=== PATIENT | female | born 1930 | race Caucasian/White ===

== ENCOUNTER 2019-04-14 18:36 | Emergency (ER) | payer MEDICARE, OTHER ==
--- NOTE | 2019-04-14 19:40 | ED ---
Altered Mental Status HPI - General Chief Complaint: Altered Mental Status Stated Complaint: altered mental Time Seen by Provider: 04/14/19 19:05 Source: patient Mode of arrival: EMS Limitations: no limitations - History of Present Illness Initial Comments: This patient is an 88-year-old woman who was sent from [facility] with concern about possibly of stroke. History is from the patient as well as family members who are at bedside. Family members received a call that the patient was seeming confused and leaning to her right, just before 5 PM. The [facility] arranged to transfer her here. When I interview the patient, she states that she is not aware why she is here. She states that she is feeling well. She is not having any pain. She denies dyspnea. She denies vomiting or diarrhea. She states that she feels well. The patient's family members state that she appears to be at her baseline now. MD Complaint: altered mental status, confusion Onset/Timin -: hour(s) Severity: mild Consistency of Symptoms: unknown Associated Symptoms: denies other symptoms - Related Data Home Medications Medication Instructions Recorded Confirmed Furosemide [Lasix] 40 mg PO BID 06/10/15 04/14/19 Acetaminophen Tab [Tylenol Tab] 650 mg PO Q4H PRN 04/14/19 04/14/19 Artificial Tears-Hypromellose 1 drops BOTH EYES Q5H PRN 04/14/19 04/14/19 [Artificial Tear Drops] Aspirin 81 mg PO DAILY 04/14/19 04/14/19 Bisacodyl [Dulcolax] 10 mg RECTAL DAILY PRN 04/14/19 04/14/19 Cholecalciferol [Vitamin D3 (25 1,000 unit PO DAILY 04/14/19 04/14/19 Mcg = 1000 Iu)] Citalopram Hydrobromide [CeleXA] 20 mg PO DAILY 04/14/19 04/14/19 Famotidine [Pepcid] 20 mg PO BID 04/14/19 04/14/19 Lactulose [Cephulac] 20 mg PO Q12H PRN 04/14/19 04/14/19 Linaclotide [Linzess] 290 mcg PO DAILY 04/14/19 04/14/19 Magnesium Hydroxide [Milk of 1,200 mg PO DAILY PRN 06/28/19 06/28/19 Magnesia] Metoprolol Tartrate [Lopressor] 25 mg PO BID 04/14/19 04/14/19 Potassium Chloride ER [K-Dur 10] 10 meq PO DAILY 04/14/19 04/14/19 Allergies Allergy/AdvReac Type Severity Reaction Status Date / Time No Known Allergies Allergy Verified 04/14/19 19:32 Review of Systems ROS Statement: Those systems with pertinent positive or pertinent negative responses have been documented in the HPI. ROS Other: All systems not noted in ROS Statement are negative. Constitutional: Denies: fever Respiratory: Denies: cough, dyspnea Cardiovascular: Denies: chest pain, syncope Gastrointestinal: Denies: abdominal pain, vomiting, diarrhea Musculoskeletal: Denies: back pain Neurological: Reports: as per HPI, confusion. Denies: headache Past Medical History Past Medical History: Coronary Artery Disease (CAD), Chest Pain / Angina, GERD/Reflux, Hyperlipidemia, Hypertension, Pneumonia Additional Past Medical History / Comment(s): uses cane, SOB(previously on O2- not currently), constipation History of Any Multi-Drug Resistant Organisms: None Reported Past Surgical History: Appendectomy, Breast Surgery, Cholecystectomy, Heart Catheterization, Hysterectomy Additional Past Surgical History / Comment(s): cataracts Past Anesthesia/Blood Transfusion Reactions: No Reported Reaction Past Psychological History: Anxiety Smoking Status: Former smoker - Past Family History Sister(s) Family Medical History: Cancer General Exam Limitations: no limitations General appearance: alert, in no apparent distress Head exam: Present: atraumatic, normocephalic Eye exam: Present: normal appearance, PERRL, EOMI. Absent: scleral icterus, conjunctival injection, nystagmus ENT exam: Present: mucous membranes dry Neck exam: Present: normal inspection, full ROM Respiratory exam: Present: normal lung sounds bilaterally. Absent: respiratory distress, wheezes, rales, rhonchi, stridor Cardiovascular Exam: Present: regular rate, normal rhythm, normal heart sounds. Absent: systolic murmur, diastolic murmur, rubs, gallop GI/Abdominal exam: Present: soft. Absent: distended, tenderness, guarding, rebound Back exam: Present: normal inspection. Absent: CVA tenderness (R), CVA tenderness (L) Neurological exam: Present: alert, CN II-XII intact. Absent: oriented X3 (Oriented to person and recognizes she is in the healthcare facility, could not state the date), motor sensory deficit Skin exam: Present: warm, dry, intact, normal color. Absent: rash Course Vital Signs 04/14/19 18:49 Temperature 98.1 F Pulse Rate 57 L Respiratory 20 Rate Blood Pressure 142/72 O2 Sat by Pulse 97 Oximetry Medical Decision Making - Medical Decision Making Patient is an 88-year-old woman presenting with concerns of stroke, the workup is negative and she is at her baseline according to both patient and her family. Discussed results of the studies, and the patient would like to be discharged home. The patient's family supports her decision. I did advise close follow-up with neurology. Discussed return parameters. - Lab Data Result diagrams: 04/14/19 19:35 04/14/19 19:35 Lab Results 04/14/19 04/14/19 04/14/19 Range/Units 19:35 19:35 19:35 WBC 8.7 (3.8-10.6) k/uL RBC 4.24 (3.80-5.40) m/uL Hgb 12.6 (11.4-16.0) gm/dL Hct 38.5 (34.0-46.0) % MCV 90.7 (80.0-100.0) fL MCH 29.8 (25.0-35.0) pg MCHC 32.8 (31.0-37.0) g/dL RDW 14.3 (11.5-15.5) % Plt Count 196 (150-450) k/uL Neutrophils % 78 % Lymphocytes % 13 % Monocytes % 6 % Eosinophils % 1 % Basophils % 0 % Neutrophils # 6.8 (1.3-7.7) k/uL Lymphocytes # 1.1 (1.0-4.8) k/uL Monocytes # 0.5 (0-1.0) k/uL Eosinophils # 0.1 (0-0.7) k/uL Basophils # 0.0 (0-0.2) k/uL PT (9.0-12.0) sec INR (<1.2) APTT (22.0-30.0) sec Sodium 138 (137-145) mmol/L Potassium 4.8 (3.5-5.1) mmol/L Chloride 100 (98-107) mmol/L Carbon Dioxide 28 (22-30) mmol/L Anion Gap 10 mmol/L BUN 41 H (7-17) mg/dL Creatinine 1.22 H (0.52-1.04) mg/dL Est GFR (CKD-EPI)AfAm 46 (>60 ml/min/1.73 sqM) Est GFR (CKD-EPI)NonAf 40 (>60 ml/min/1.73 sqM) Glucose 105 H (74-99) mg/dL Plasma Lactic Acid Amanuel 1.5 (0.7-2.0) mmol/L Calcium 9.3 (8.4-10.2) mg/dL Total Bilirubin 0.5 (0.2-1.3) mg/dL AST 27 (14-36) U/L ALT 16 (9-52) U/L Alkaline Phosphatase 82 (38-126) U/L Troponin I (0.000-0.034) ng/mL NT-Pro-B Natriuret Pep pg/mL Total Protein 7.0 (6.3-8.2) g/dL Albumin 4.0 (3.5-5.0) g/dL Urine Color Urine Appearance (Clear) Urine pH (5.0-8.0) Ur Specific [place] (1.001-1.035) Urine Protein (Negative) Urine Glucose (UA) (Negative) Urine Ketones (Negative) Urine Blood (Negative) Urine Nitrite (Negative) Urine Bilirubin (Negative) Urine Urobilinogen (<2.0) mg/dL Ur Leukocyte Esterase (Negative) Urine Opiates Screen (NotDetected) Ur Oxycodone Screen (NotDetected) Urine Methadone Screen (NotDetected) Ur Propoxyphene Screen (NotDetected) Ur Barbiturates Screen (NotDetected) U Tricyclic Antidepress (NotDetected) Ur Phencyclidine Scrn (NotDetected) Ur Amphetamines Screen (NotDetected) U Methamphetamines Scrn (NotDetected) U Benzodiazepines Scrn (NotDetected) Urine Cocaine Screen (NotDetected) U Marijuana (THC) Screen (NotDetected) 04/14/19 04/14/19 04/14/19 Range/Units 19:35 19:35 19:35 WBC (3.8-10.6) k/uL RBC (3.80-5.40) m/uL Hgb (11.4-16.0) gm/dL Hct (34.0-46.0) % MCV (80.0-100.0) fL MCH (25.0-35.0) pg MCHC (31.0-37.0) g/dL RDW (11.5-15.5) % Plt Count (150-450) k/uL Neutrophils % % Lymphocytes % % Monocytes % % Eosinophils % % Basophils % % Neutrophils # (1.3-7.7) k/uL Lymphocytes # (1.0-4.8) k/uL Monocytes # (0-1.0) k/uL Eosinophils # (0-0.7) k/uL Basophils # (0-0.2) k/uL PT 9.6 (9.0-12.0) sec INR 0.9 (<1.2) APTT 23.9 (22.0-30.0) sec Sodium (137-145) mmol/L Potassium (3.5-5.1) mmol/L Chloride (98-107) mmol/L Carbon Dioxide (22-30) mmol/L Anion Gap mmol/L BUN (7-17) mg/dL Creatinine (0.52-1.04) mg/dL Est GFR (CKD-EPI)AfAm (>60 ml/min/1.73 sqM) Est GFR (CKD-EPI)NonAf (>60 ml/min/1.73 sqM) Glucose (74-99) mg/dL Plasma Lactic Acid Amanuel (0.7-2.0) mmol/L Calcium (8.4-10.2) mg/dL Total Bilirubin (0.2-1.3) mg/dL AST (14-36) U/L ALT (9-52) U/L Alkaline Phosphatase (38-126) U/L Troponin I <0.012 (0.000-0.034) ng/mL NT-Pro-B Natriuret Pep 361 pg/mL Total Protein (6.3-8.2) g/dL Albumin (3.5-5.0) g/dL Urine Color Urine Appearance (Clear) Urine pH (5.0-8.0) Ur Specific [place] (1.001-1.035) Urine Protein (Negative) Urine Glucose (UA) (Negative) Urine Ketones (Negative) Urine Blood (Negative) Urine Nitrite (Negative) Urine Bilirubin (Negative) Urine Urobilinogen (<2.0) mg/dL Ur Leukocyte Esterase (Negative) Urine Opiates Screen (NotDetected) Ur Oxycodone Screen (NotDetected) Urine Methadone Screen (NotDetected) Ur Propoxyphene Screen (NotDetected) Ur Barbiturates Screen (NotDetected) U Tricyclic Antidepress (NotDetected) Ur Phencyclidine Scrn (NotDetected) Ur Amphetamines Screen (NotDetected) U Methamphetamines Scrn (NotDetected) U Benzodiazepines Scrn (NotDetected) Urine Cocaine Screen (NotDetected) U Marijuana (THC) Screen (NotDetected) 04/14/19 Range/Units 21:14 WBC (3.8-10.6) k/uL RBC (3.80-5.40) m/uL Hgb (11.4-16.0) gm/dL Hct (34.0-46.0) % MCV (80.0-100.0) fL MCH (25.0-35.0) pg MCHC (31.0-37.0) g/dL RDW (11.5-15.5) % Plt Count (150-450) k/uL Neutrophils % % Lymphocytes % % Monocytes % % Eosinophils % % Basophils % % Neutrophils # (1.3-7.7) k/uL Lymphocytes # (1.0-4.8) k/uL Monocytes # (0-1.0) k/uL Eosinophils # (0-0.7) k/uL Basophils # (0-0.2) k/uL PT (9.0-12.0) sec INR (<1.2) APTT (22.0-30.0) sec Sodium (137-145) mmol/L Potassium (3.5-5.1) mmol/L Chloride (98-107) mmol/L Carbon Dioxide (22-30) mmol/L Anion Gap mmol/L BUN (7-17) mg/dL Creatinine (0.52-1.04) mg/dL Est GFR (CKD-EPI)AfAm (>60 ml/min/1.73 sqM) Est GFR (CKD-EPI)NonAf (>60 ml/min/1.73 sqM) Glucose (74-99) mg/dL Plasma Lactic Acid Amanuel (0.7-2.0) mmol/L Calcium (8.4-10.2) mg/dL Total Bilirubin (0.2-1.3) mg/dL AST (14-36) U/L ALT (9-52) U/L Alkaline Phosphatase (38-126) U/L Troponin I (0.000-0.034) ng/mL NT-Pro-B Natriuret Pep pg/mL Total Protein (6.3-8.2) g/dL Albumin (3.5-5.0) g/dL Urine Color Yellow Urine Appearance Clear (Clear) Urine pH 6.0 (5.0-8.0) Ur Specific [place] 1.010 (1.001-1.035) Urine Protein Negative (Negative) Urine Glucose (UA) Negative (Negative) Urine Ketones Negative (Negative) Urine Blood Negative (Negative) Urine Nitrite Negative (Negative) Urine Bilirubin Negative (Negative) Urine Urobilinogen <2.0 (<2.0) mg/dL Ur Leukocyte Esterase Negative (Negative) Urine Opiates Screen Not Detected (NotDetected) Ur Oxycodone Screen Not Detected (NotDetected) Urine Methadone Screen Not Detected (NotDetected) Ur Propoxyphene Screen Not Detected (NotDetected) Ur Barbiturates Screen Not Detected (NotDetected) U Tricyclic Antidepress Not Detected (NotDetected) Ur Phencyclidine Scrn Not Detected (NotDetected) Ur Amphetamines Screen Not Detected (NotDetected) U Methamphetamines Scrn Not Detected (NotDetected) U Benzodiazepines Scrn Not Detected (NotDetected) Urine Cocaine Screen Not Detected (NotDetected) U Marijuana (THC) Screen Not Detected (NotDetected) - EKG Data EKG shows normal: sinus rhythm, axis (Normal), intervals (QRS duration 150 ms, prolonged, consistent with the left bundle-branch block. UT interval 146 ms, QTC 504 ms, both normal), QRS complexes (Left bundle branch block) Rate: bradycardia (Rate is approximately 58 bpm) Interpretation: other (There does appear to be previous left bundle-branch block from previous monitor tracings.) Disposition Clinical Impression: TIA (transient ischemic attack) Disposition: HOME SELF-CARE Condition: Fair Instructions (If sedation given, give patient instructions): Transient Ischemic Attack (ED) Is patient prescribed a controlled substance at d/c from ED?: No Referrals: Elza Meadows MD [Primary Care Provider] - 1-2 days Jasvir Santos MD [REFERRING] - 1-2 days
[2019-04-14 20:16] LABS: Basophils % (A) 0 %; Eosinophils # (A) 0.1 k/uL (0-0.7); Eosinophils % (A) 1 %; HCT 38.5 % (34.0-46.0); HGB 12.6 gm/dL (11.4-16.0); Lymphocytes # (A) 1.1 k/uL (1.0-4.8); Lymphocytes % (A) 13 %; MCH 29.8 pg (25.0-35.0); MCHC 32.8 g/dL (31.0-37.0); MCV 90.7 fL (80.0-100.0); Mean Platelet Volume 6.8; Monocytes # (A) 0.5 k/uL (0-1.0); Monocytes % (A) 6 %; Neutrophils # (A) 6.8 k/uL (1.3-7.7); Neutrophils % (A) 78 %; Platelet Count 196 k/uL (150-450); RBC 4.24 m/uL (3.80-5.40); RDW 14.3 % (11.5-15.5); WBC 8.7 k/uL (3.8-10.6)
--- NOTE | 2019-04-14 20:20 | XR ---
EXAMINATION: XR chest 2V DATE AND TIME: 04/14/2019 8:14 PM CLINICAL INDICATION: PHH; altered mental status TECHNIQUE: Departmental protocol COMPARISON: 04/30/2016 FINDINGS: The lungs are clear. The pleural spaces are negative. The cardiac silhouette is mildly enlarged. The skeletal structures and soft tissues are negative for acute findings. Intrathoracic stomach redemonstrated. IMPRESSION: NO ACUTE PROCESS.
[2019-04-14 20:25] LABS: Calcium 9.3 mg/dL (8.4-10.2); Potassium 4.8 mmol/L (3.5-5.1); Total Bilirubin 0.5 mg/dL (0.2-1.3)
[2019-04-14 20:30] LABS: INR 0.9 (<1.2); Partial Thromboplastin Time 23.9 sec (22.0-30.0); Prothrombin Time 9.6 sec (9.0-12.0)
--- NOTE | 2019-04-14 20:44 | CT ---
EXAMINATION: CT brain wo con DATE AND TIME: 04/14/2019 8:12 PM CLINICAL INDICATION: PHH; altered mental status TECHNIQUE: Standard departmental protocol.; 1066.4; COMPARISON: 01/27/2013 FINDINGS: The calvarium is intact. There is no intracranial hemorrhage. There is no intracranial mass or mass effect. No definite new intra-axial attenuation defect. The non specific espinoza radiata and centrum semiovale low attenuation seen on the prior study is redemonstrat ed. Extra-axial compartment negative for acute findings and stable in appearance. The paranasal sinuses, middle ear cavities, and mastoid sinus air cells are clear. The orbits are unremarkable. IMPRESSION: No definite acute process.
[2019-04-14 21:21] LABS: Appearance,Urine Clear (Clear); Bilirubin,Urine Negative (Negative); Blood,Urine Negative (Negative); Color,Urine Yellow; Glucose,Urine (UA) Negative (Negative); Ketones,Urine Negative (Negative); Leukocyte Esterase,Urine Negative (Negative); Nitrite,Urine Negative (Negative); Protein,Urine Negative (Negative); Urobilinogen,Urine <2.0 mg/dL (<2.0)
[2019-04-14 21:31] LABS: Amphetamine Screen,Urine Not Detected (NotDetected); Barbiturate Screen,Urine Not Detected (NotDetected); Benzodiazepines Screen,Urine Not Detected (NotDetected); Cocaine Screen,Urine Not Detected (NotDetected); Methadone Screen, Urine Not Detected (NotDetected); Opiate Screen,Urine Not Detected (NotDetected); Oxycodone Screen, Urine Not Detected (NotDetected); Phencyclidine Screen,Urine Not Detected (NotDetected); Tricyclic Antidepressant,Urine Not Detected (NotDetected); Urn Cannabinoid Scrn Not Detected (NotDetected)
[2019-04-15 00:49] VITALS: BP 129/63; PULSE 62; RESP 18; TEMP 97.9
== END 2019-04-15 00:49 | disposition home or self-care (01) ==
LOC: EC 18:36 → EEVIPCON 18:36 → EC 04-15 00:49
DX: G45.9 Transient cerebral ischemic attack, unspecified (principal); I44.7 Left bundle-branch block, unspecified; I25.119 Atherosclerotic heart disease of native coronary artery with unspecified angina pectoris; K21.9 Gastro-esophageal reflux disease without esophagitis; E78.5 Hyperlipidemia, unspecified; I10 Essential (primary) hypertension; F41.9 Anxiety disorder, unspecified; Z79.82 Long term (current) use of aspirin; Z79.899 Other long term (current) drug therapy; Z87.891 Personal history of nicotine dependence; Z95.5 Presence of coronary angioplasty implant and graft
CPT/HCPCS: 36415; 70450; 71046; 80053; 80306; 81003; 83605; 83880; 84484; 85025; 85610; 85730; 87040; 99285

== ENCOUNTER 2020-03-28 19:17 | Inpatient (IN) | payer MEDICARE, OTHER ==
--- NOTE | 2020-03-28 19:53 | ED ---
General Adult HPI - General Chief complaint: Weakness Stated complaint: SOB Time Seen by Provider: 03/28/20 19:20 Source: patient, EMS, RN notes reviewed, old records reviewed Mode of arrival: EMS Limitations: altered mental status (Patient is baseline very confused she has no idea why she is currently here.) - History of Present Illness Initial comments: This is an 89-year-old female who presents emergency Department because of difficulty breathing per the [facility]. We were told that the patient's pulse ox dropped into the 80s when she ambulated around we will repeat the procedure here. Patient also has been very weak lately according to the staff. Again patient gives no history is no staff with the patient and there is no family with the patient. - Related Data Home Medications Medication Instructions Recorded Confirmed Furosemide [Lasix] 40 mg PO BID 06/10/15 04/14/19 Acetaminophen Tab [Tylenol Tab] 650 mg PO Q4H PRN 04/14/19 04/14/19 Artificial Tears-Hypromellose 1 drops BOTH EYES Q5H PRN 04/14/19 04/14/19 [Artificial Tear Drops] Aspirin 81 mg PO DAILY 04/14/19 04/14/19 Bisacodyl [Dulcolax] 10 mg RECTAL DAILY PRN 04/14/19 04/14/19 Cholecalciferol [Vitamin D3 (25 1,000 unit PO DAILY 04/14/19 04/14/19 Mcg = 1000 Iu)] Citalopram Hydrobromide [CeleXA] 20 mg PO DAILY 04/14/19 04/14/19 Famotidine [Pepcid] 20 mg PO BID 04/14/19 04/14/19 Lactulose [Cephulac] 20 mg PO Q12H PRN 04/14/19 04/14/19 Linaclotide [Linzess] 290 mcg PO DAILY 04/14/19 04/14/19 Magnesium Hydroxide [Milk of 1,200 mg PO DAILY PRN 04/14/19 04/14/19 Magnesia] Metoprolol Tartrate [Lopressor] 25 mg PO BID 04/14/19 04/14/19 Potassium Chloride ER [K-Dur 10] 10 meq PO DAILY 04/14/19 04/14/19 Allergies Allergy/AdvReac Type Severity Reaction Status Date / Time No Known Allergies Allergy Verified 03/28/20 19:32 Review of Systems ROS Statement: Those systems with pertinent positive or pertinent negative responses have been documented in the HPI. ROS Other: All systems not noted in ROS Statement are negative. Past Medical History Past Medical History: Coronary Artery Disease (CAD), Chest Pain / Angina, GERD/Reflux, Hyperlipidemia, Hypertension, Pneumonia Additional Past Medical History / Comment(s): uses cane, SOB(previously on O2- not currently), constipation History of Any Multi-Drug Resistant Organisms: None Reported Past Surgical History: Appendectomy, Breast Surgery, Cholecystectomy, Heart Catheterization, Hysterectomy Additional Past Surgical History / Comment(s): cataracts Past Anesthesia/Blood Transfusion Reactions: No Reported Reaction Past Psychological History: Anxiety Smoking Status: Former smoker - Past Family History Sister(s) Family Medical History: Cancer General Exam - General Exam Comments Initial Comments: GENERAL: Patient is well-developed and well-nourished. Patient is nontoxic and well- hydrated and is in mild distress. ENT: Neck is soft and supple. No significant lymphadenopathy is noted. Oropharynx is clear. Moist mucous membranes. Neck has full range of motion without eliciting any pain. EYES: The sclera were anicteric and conjunctiva were pink and moist. Extraocular movements were intact and pupils were equal round and reactive to light. Eyelids were unremarkable. PULMONARY: Unlabored respirations. Good breath sounds bilaterally. No audible rales rhonchi or wheezing was noted. CARDIOVASCULAR: There is a regular rate and rhythm without any murmurs gallops or rubs. ABDOMEN: Soft and nontender with normal bowel sounds. SKIN: Skin is clear with no lesions or rashes and otherwise unremarkable. NEUROLOGIC: Patient is alert and oriented x3. Cranial nerves II through XII are grossly intact. Motor and sensory are also intact. Normal speech, volume and content. Symmetrical smile. MUSCULOSKELETAL: Normal extremities with adequate strength and full range of motion. LYMPHATICS: No significant lymphadenopathy is noted PSYCHIATRIC: Normal psychiatric evaluation. Limitations: language barrier Course Vital Signs 03/28/20 19:20 Temperature 99 F Pulse Rate 84 Respiratory 18 Rate Blood Pressure 130/89 O2 Sat by Pulse 100 Oximetry Medical Decision Making - Medical Decision Making EKG shows normal sinus rhythm at 85 bpm [place] interval 160 QRS is 144 QT interval 438 QTC is 521. Patient has left bundle branch block Patient's hemoglobin was 4.7 so I gave the patient 2 units of blood. I spoke with Dr. Meadows he agreed to admit the patient admitted the patient wrote admitting orders. - Lab Data Result diagrams: 03/28/20 20:27 03/28/20 20:27 Lab Results 03/28/20 03/28/20 03/28/20 Range/Units 20:27 20:27 20:27 WBC 5.7 (3.8-10.6) k/uL RBC 2.02 L (3.80-5.40) m/uL Hgb 4.7 L* D (11.4-16.0) gm/dL Hct 15.4 L* (34.0-46.0) % MCV 76.3 L (80.0-100.0) fL MCH 23.3 L (25.0-35.0) pg MCHC 30.5 L (31.0-37.0) g/dL RDW 15.2 (11.5-15.5) % Plt Count 298 (150-450) k/uL Neutrophils % 73 % Lymphocytes % 16 % Monocytes % 8 % Eosinophils % 1 % Basophils % 0 % Neutrophils # 4.1 (1.3-7.7) k/uL Lymphocytes # 0.9 L (1.0-4.8) k/uL Monocytes # 0.4 (0-1.0) k/uL Eosinophils # 0.1 (0-0.7) k/uL Basophils # 0.0 (0-0.2) k/uL Hypochromasia Marked Poikilocytosis Moderate Microcytosis Slight Sodium 132 L (137-145) mmol/L Potassium 3.6 (3.5-5.1) mmol/L Chloride 97 L (98-107) mmol/L Carbon Dioxide 26 (22-30) mmol/L Anion Gap 9 mmol/L BUN 32 H (7-17) mg/dL Creatinine 0.95 (0.52-1.04) mg/dL Est GFR (CKD-EPI)AfAm 63 (>60 ml/min/1.73 sqM) Est GFR (CKD-EPI)NonAf 54 (>60 ml/min/1.73 sqM) Glucose 114 H (74-99) mg/dL Plasma Lactic Acid Amanuel 1.2 (0.7-2.0) mmol/L Calcium 7.9 L (8.4-10.2) mg/dL Magnesium 2.1 (1.6-2.3) mg/dL Total Bilirubin 0.3 (0.2-1.3) mg/dL AST 22 (14-36) U/L ALT 8 (4-34) U/L Alkaline Phosphatase 69 (38-126) U/L Troponin I (0.000-0.034) ng/mL NT-Pro-B Natriuret Pep pg/mL Total Protein 5.2 L (6.3-8.2) g/dL Albumin 2.6 L (3.5-5.0) g/dL 03/28/20 03/28/20 Range/Units 20:27 20:27 WBC (3.8-10.6) k/uL RBC (3.80-5.40) m/uL Hgb (11.4-16.0) gm/dL Hct (34.0-46.0) % MCV (80.0-100.0) fL MCH (25.0-35.0) pg MCHC (31.0-37.0) g/dL RDW (11.5-15.5) % Plt Count (150-450) k/uL Neutrophils % % Lymphocytes % % Monocytes % % Eosinophils % % Basophils % % Neutrophils # (1.3-7.7) k/uL Lymphocytes # (1.0-4.8) k/uL Monocytes # (0-1.0) k/uL Eosinophils # (0-0.7) k/uL Basophils # (0-0.2) k/uL Hypochromasia Poikilocytosis Microcytosis Sodium (137-145) mmol/L Potassium (3.5-5.1) mmol/L Chloride (98-107) mmol/L Carbon Dioxide (22-30) mmol/L Anion Gap mmol/L BUN (7-17) mg/dL Creatinine (0.52-1.04) mg/dL Est GFR (CKD-EPI)AfAm (>60 ml/min/1.73 sqM) Est GFR (CKD-EPI)NonAf (>60 ml/min/1.73 sqM) Glucose (74-99) mg/dL Plasma Lactic Acid Amanuel (0.7-2.0) mmol/L Calcium (8.4-10.2) mg/dL Magnesium (1.6-2.3) mg/dL Total Bilirubin (0.2-1.3) mg/dL AST (14-36) U/L ALT (4-34) U/L Alkaline Phosphatase (38-126) U/L Troponin I <0.012 (0.000-0.034) ng/mL NT-Pro-B Natriuret Pep 1160 pg/mL Total Protein (6.3-8.2) g/dL Albumin (3.5-5.0) g/dL Disposition Clinical Impression: Anemia, GI bleed Disposition: ADMITTED IP TO THIS HOSP Referrals: Elza Meadows MD [Primary Care Provider] - 1-2 days Time of Disposition: 22:00
[2020-03-28 20:47] LABS: Basophils % (A) 0 %; Eosinophils # (A) 0.1 k/uL (0-0.7); Eosinophils % (A) 1 %; Hypochromasia Marked; Lymphocytes # (A) 0.9 k/uL (1.0-4.8); Lymphocytes % (A) 16 %; MCH 23.3 pg (25.0-35.0); MCHC 30.5 g/dL (31.0-37.0); MCV 76.3 fL (80.0-100.0); Mean Platelet Volume 7.1; Microcytosis Slight; Monocytes # (A) 0.4 k/uL (0-1.0); Monocytes % (A) 8 %; Neutrophils # (A) 4.1 k/uL (1.3-7.7); Neutrophils % (A) 73 %; Platelet Count 298 k/uL (150-450); Poikilocytosis Moderate; RBC 2.02 m/uL (3.80-5.40); RDW 15.2 % (11.5-15.5); WBC 5.7 k/uL (3.8-10.6)
[2020-03-28 20:52] LABS: Albumin 2.6 g/dL (3.5-5.0); Calcium 7.9 mg/dL (8.4-10.2); Magnesium 2.1 mg/dL (1.6-2.3); Potassium 3.6 mmol/L (3.5-5.1); Total Bilirubin 0.3 mg/dL (0.2-1.3); Total Protein 5.2 g/dL (6.3-8.2)
[2020-03-28 20:53] LABS: HCT 15.4 % (34.0-46.0); HGB 4.7 gm/dL (11.4-16.0)
--- NOTE | 2020-03-28 21:27 | XR ---
EXAMINATION: XR chest 2V DATE AND TIME: 03/28/2020 8:58 PM CLINICAL INDICATION: PHH; Weakness TECHNIQUE: AP upright view and lateral view COMPARISON: 04/14/2019 AP and lateral views FINDINGS: The overlying soft tissues are prominent, limiting visualization. On the AP radiograph there is a new left lateral rib fracture with evidence of other rib fractures on the left and an overlying soft tissue swelling which may represent hematoma. Would suggest noncontra st CT characterization. The lungs are clear. The pleural spaces are negative for pneumothorax, but there is evidence of a small left pleural effus ion. The cardiac silhouette is not mildly enlarged, similar. An intrathoracic stomach component is redemon strated. The soft tissues are negative for acute findings. IMPRESSION: Lower left lateral rib fracture noted, with small left pleural effusion.
[2020-03-28] MEDS ORDERED: SODIUM CHLORIDE 0.9% 500 ML 500 ML IV ONE (22:27)
[2020-03-28] MEDS ORDERED: NALOXONE 0.4 MG/ML 1 ML VIAL IV PRN (22:37)
[2020-03-29 01:03] LABS: Appearance,Urine Clear (Clear); Bilirubin,Urine Negative (Negative); Blood,Urine Negative (Negative); Color,Urine Light Yellow; Glucose,Urine (UA) Negative (Negative); Ketones,Urine Negative (Negative); Leukocyte Esterase,Urine Negative (Negative); Nitrite,Urine Negative (Negative); PH, Urine 5.5 (5.0-8.0); Protein,Urine Negative (Negative); Specific Gravity,Urine 1.011 (1.001-1.035); Urobilinogen,Urine <2.0 mg/dL (<2.0)
[2020-03-29 01:03] LABS: Glucose,Whole Blood 118 mg/dL (75-99)
[2020-03-29 05:23] LABS: Anisocytosis Slight; Basophils % (A) 0 %; Eosinophils # (A) 0.1 k/uL (0-0.7); Eosinophils % (A) 1 %; HCT 24.6 % (34.0-46.0); Hypochromasia Moderate; Lymphocytes # (A) 0.8 k/uL (1.0-4.8); Lymphocytes % (A) 13 %; MCH 26.1 pg (25.0-35.0); MCHC 31.3 g/dL (31.0-37.0); Mean Platelet Volume 7.9; Monocytes # (A) 0.6 k/uL (0-1.0); Monocytes % (A) 10 %; Neutrophils # (A) 4.2 k/uL (1.3-7.7); Neutrophils % (A) 73 %; Platelet Count 247 k/uL (150-450); Poikilocytosis Moderate; RBC 2.96 m/uL (3.80-5.40); RDW 16.9 % (11.5-15.5); WBC 5.7 k/uL (3.8-10.6)
[2020-03-29 05:35] LABS: Calcium 7.7 mg/dL (8.4-10.2); Potassium 3.5 mmol/L (3.5-5.1)
[2020-03-29 05:53] LABS: Prothrombin Time 10.2 sec (9.0-12.0)
[2020-03-29 06:06] LABS: HGB 7.7 gm/dL (11.4-16.0); MCV 83.2 fL (80.0-100.0)
[2020-03-29 06:15] LABS: Partial Thromboplastin Time 21.5 sec (22.0-30.0)
[2020-03-29] MEDS ORDERED: Potassium Replacement Protocol 1 EACH MISC MISCELLANE PRN (06:50)
[2020-03-29] MEDS: SODIUM CHLORIDE 0.9% 1,000 ML IV SCH ×2 (07:10→20:26)
[2020-03-29] MEDS: POTASSIUM CHLORIDE 10 MEQ in WATER FOR INJECTION 1 100ML.BAG IVPB SCH ×4 (07:11→11:01)
[2020-03-29] MEDS ORDERED: ARTIFICIAL TEARS-HYPROMELLOSE DROPS 15 ML BTL BOTH EYES PRN (07:57)
[2020-03-29] MEDS ORDERED: LISINOPRIL 2.5 MG TAB PO SCH (09:00)
[2020-03-29] MEDS: PANTOPRAZOLE 40 MG/10 ML VIAL IVP SCH ×2 (10:00→21:48)
[2020-03-29] MEDS: METOPROLOL TARTRATE 12.5 MG TAB PO SCH ×2 (10:01→21:50)
[2020-03-29] MEDS: CHOLECALCIFEROL 1,000 UNIT TAB PO SCH (10:01)
[2020-03-29] MEDS: CITALOPRAM HYDROBROMIDE 20 MG TAB PO SCH (10:01)
[2020-03-29 12:19] LABS: Anisocytosis Slight; Basophils % (A) 0 %; Eosinophils # (A) 0.1 k/uL (0-0.7); Eosinophils % (A) 1 %; HCT 22.6 % (34.0-46.0); HGB 7.2 gm/dL (11.4-16.0); Hypochromasia Marked; Lymphocytes # (A) 0.6 k/uL (1.0-4.8); Lymphocytes % (A) 13 %; MCH 26.6 pg (25.0-35.0); MCV 83.2 fL (80.0-100.0); Mean Platelet Volume 7.6; Monocytes # (A) 0.3 k/uL (0-1.0); Monocytes % (A) 7 %; Neutrophils # (A) 3.6 k/uL (1.3-7.7); Neutrophils % (A) 76 %; Platelet Count 216 k/uL (150-450); Poikilocytosis Moderate; RBC 2.71 m/uL (3.80-5.40); RDW 16.5 % (11.5-15.5); WBC 4.7 k/uL (3.8-10.6)
--- NOTE | 2020-03-29 12:30 | P.CNPUL ---
History of Present Illness Consult date: 03/29/20 Reason for consult: other (GI bleeding, I see management.) Chief complaint: Weakness. History of present illness: This is an 89-year-old female, jail resident, patient was noted to have worsening weakness, and shortness of breath [facility] at the jail. Patient was told that her pulse oximeter dropped into the 80s when she ambulated, and she was advised to go to the ER. Workup in the ER included a chest x-ray which was basically normal except for some old rib fractures on the left side. Patient was also noted to have an extremely low hemoglobin, 4.7. With low indices suggestive of iron deficiency or blood loss anemia. Stool occult blood was positive. Hence the patient was admitted to the ICU for further evaluation and treatment. The patient is a poor historian, she had no symptoms, except of being weak. Since admission the patient received 2 units of packed RBCs, and her present hemoglobin is 7.2. No previous history of GI bleeding. No documented history of anemia in the chart. Patient cannot tell if she had a previous workup for GI bleeding including colonoscopy or EGD. Review of Systems ROS unobtainable: due to mental status Past Medical History Past Medical History: Coronary Artery Disease (CAD), Chest Pain / Angina, COPD, Dementia, GERD/Reflux, Hyperlipidemia, Hypertension, Osteoarthritis (OA), Renal Disease Additional Past Medical History / Comment(s): Chronic constipation, Dry Eye syndrome, hypokalemia, CKD stage III, PVD, anemia History of Any Multi-Drug Resistant Organisms: None Reported Past Surgical History: Appendectomy, Breast Surgery, Cholecystectomy, Heart Catheterization, Hysterectomy Additional Past Surgical History / Comment(s): cataracts Past Anesthesia/Blood Transfusion Reactions: No Reported Reaction Smoking Status: Unknown if ever smoked - Past Family History Sister(s) Family Medical History: Cancer Medications and Allergies Home Medications Medication Instructions Recorded Confirmed Type Furosemide [Lasix] 40 mg PO BID 06/10/15 03/28/20 History Artificial Tears-Hypromellose 1 drops BOTH EYES Q6H PRN 04/14/19 03/28/20 History [Artificial Tear Drops] Aspirin 81 mg PO DAILY 04/14/19 03/28/20 History Cholecalciferol [Vitamin D3 (25 1,000 unit PO DAILY 04/14/19 03/28/20 History Mcg = 1000 Iu)] Citalopram Hydrobromide [CeleXA] 20 mg PO DAILY 04/14/19 03/28/20 History Linaclotide [Linzess] 290 mcg PO DAILY 04/14/19 03/28/20 History Metoprolol Tartrate [Lopressor] 12.5 mg PO BID 04/14/19 03/28/20 History Potassium Chloride ER [K-Dur 10] 10 meq PO DAILY 04/14/19 03/28/20 History Atorvastatin [Lipitor] 20 mg PO HS 03/28/20 03/28/20 History Docusate Sodium [Dok] 200 mg PO HS 03/28/20 03/28/20 History Lisinopril [Zestril] 1.25 mg PO DAILY 03/28/20 03/28/20 History Allergies Allergy/AdvReac Type Severity Reaction Status Date / Time No Known Allergies Allergy Verified 03/28/20 23:16 Physical Exam Vitals: Vital Signs Temp Pulse Resp BP Pulse Ox 03/29/20 11:00 73 25 H 95/56 93 L 03/29/20 10:00 72 17 94/64 93 L 03/29/20 09:00 70 15 104/50 94 L 03/29/20 08:00 98.4 F 74 20 91/63 97 03/29/20 07:00 75 15 106/72 98 03/29/20 06:00 74 15 97/51 98 03/29/20 05:00 77 17 108/59 96 03/29/20 04:06 98.2 F 76 22 108/59 03/29/20 04:00 98.2 F 77 15 119/50 98 03/29/20 03:00 79 12 96/67 98 03/29/20 02:28 98.1 F 80 20 96/87 03/29/20 02:00 77 18 103/61 99 03/29/20 01:58 98.5 F 78 18 87/58 99 03/29/20 01:48 99.1 F 78 23 103/61 03/29/20 01:38 98.8 F 80 18 98/52 99 03/29/20 01:01 97.6 F 80 19 116/69 100 03/29/20 00:45 98.7 F 78 17 86/61 97 03/29/20 00:15 98.7 F 84 18 85/60 97 03/28/20 23:45 98.8 F 78 18 98/74 98 03/28/20 23:15 98.7 F 87 17 97/59 98 03/28/20 22:45 98.6 F 92 18 93/50 98 03/28/20 22:35 99 F 89 18 91/48 98 03/28/20 22:24 99 F 87 18 83/47 100 03/28/20 19:20 99 F 84 18 130/89 100 Intake and Output 03/28/20 03/29/20 03/29/20 22:59 06:59 14:59 Intake Total 0 720 425 Output Total 335 125 Balance 0 385 300 Intake: IV 100 425 .9 100 Potassium Chloride 10 meq 200 In Water For Injection 1 100ml.bag @ 100 mls/hr IVPB Q1HR [facility] Rx#: [id number] Sodium Chloride 0.9% 1, 225 000 ml @ 75 mls/hr IV . [id number] [facility] Rx#:[id number] Blood Product 0 620 Rc As-1 Unit 0 310 [id number] Rc As-1 Unit 310 [id number] Output: Urine 335 125 Other: Voiding Method Indwelling Catheter Indwelling Catheter Weight 68.039 kg 77.9 kg GENERAL: Revealed 89-year-old female, pleasant, in bed, in no distress, on room air. ENT: Pale conjunctivae, no neck masses, no JVD, dry mucous membranes, no icterus. PERRLA, EOM PULMONARY: Unlabored respirations. Symmetrical expansion, clear throughout no crackles or rhonchi or wheezes. CARDIOVASCULAR: Normal S1 and S2, no S3 gallop. ABDOMEN: Soft and nontender with normal bowel sounds. SKIN: Skin is clear with no lesions or rashes and otherwise unremarkable. NEUROLOGIC: Patient is arousable, follows simple instructions, but seems to be confused. MUSCULOSKELETAL: Normal extremities with adequate strength and full range of motion. LYMPHATICS: No significant lymphadenopathy is noted PSYCHIATRIC: Normal mood affect, confused. Results - Laboratory Findings CBC and BMP: 03/29/20 04:41 03/29/20 04:41 PT/INR, D-dimer PT 10.2 sec (9.0-12.0) 03/29/20 04:41 INR 1.0 (<1.2) 03/29/20 04:41 Abnormal lab findings: Abnormal Labs 03/28/20 03/28/20 03/28/20 10:00 20:27 20:27 RBC 2.02 L Hgb 4.7 L* D Hct 15.4 L* MCV 76.3 L MCH 23.3 L MCHC 30.5 L RDW Lymphocytes # 0.9 L APTT Sodium 132 L Chloride 97 L BUN 32 H Glucose 114 H POC Glucose (mg/dL) Calcium 7.9 L Total Protein 5.2 L Albumin 2.6 L Stool Occult Blood Positive H Crossmatch 03/28/20 03/29/20 03/29/20 21:15 01:02 04:41 RBC Hgb Hct MCV MCH MCHC RDW Lymphocytes # APTT 21.5 L Sodium Chloride BUN Glucose POC Glucose (mg/dL) 118 H Calcium Total Protein Albumin Stool Occult Blood Crossmatch See Detail 03/29/20 03/29/20 04:41 04:41 RBC 2.96 L Hgb 7.7 L D Hct 24.6 L MCV MCH MCHC RDW 16.9 H Lymphocytes # 0.8 L APTT Sodium 130 L Chloride BUN 30 H Glucose POC Glucose (mg/dL) Calcium 7.7 L Total Protein Albumin Stool Occult Blood Crossmatch - Diagnostic Findings Chest x-ray: image reviewed (Old left-sided rib fractures otherwise negative.) Assessment and Plan Assessment: Impression: Acute or possibly subacute GI bleeding with profound anemia on presentation. Blood loss anemia secondary to GI bleeding, exact nature is not clear, possibly upper GI related. History of underlying coronary artery disease based on previous cardiac catheterization. Underlying dementia. Is suspected. Benign essential hypertension. GERD without esophagitis. History of left sided rib fractures most likely secondary to fall. Recommendation: Transfused to a hemoglobin above 7. This was already done. Continue Protonix. GI to see her on consultation and possibly consider EGD and/or colonoscopy. Consider transferring the patient out of the ICU to a regular medical floor and monitor hemoglobin and hematocrit daily. We will continue to follow. Time with Patient: Greater than 30
--- NOTE | 2020-03-29 13:25 | P.HPIM ---
History of Present Illness H&P Date: 03/29/20 This is an 89-year-old female patient of mine residing at a long-term resident at [facility] with past medical history of chronic systolic heart failure, hypertension, coronary artery disease with chronically occluded RCA, hypertensive cardiovascular disease, chronic kidney disease stage III, chronic anemia, hyperlipidemia, gastroesophageal reflux disease, Alzheimer's dementia, recurrent depression, generalized osteoarthritis, chronic dry eye, vitamin D deficiency. Patient was sent into [facility] emergency center for evaluation of difficulty breathing, lethargy and weakness. She had a documented drop in her pulse ox 80s. Patient has baseline confusion and is unable to provide reliable history. Patient was found to be afebrile, heart rate 84, blood pressure 130/89, pulse ox 100% EKG was normal sinus rhythm with a left bundle branch block. Hemoglobin came back at 4.7. Sodium 132, potassium 3.6, chloride 97, CO2 26, BUN 32 and creatinine 0.95, blood sugar 114. Liver function tests were within normal limits. Lactic acid 1.2. Troponin negative. ProBNP 1160. Patient was admitted into intensive care unit, transfuse 2 units packed RBCs, consult with diagnostic tech. Patient has not had a bowel movement since admission but alcohol stool was positive. Patient has been seen by GI with plan for EGD tomorrow. Review of Systems Constitutional: Reports fatigue, Reports lethargy, Reports weakness, Denies fever Eyes: denies blurred vision, denies pain Ears, nose, mouth and throat: Reports vertigo, Denies dysphagia, Denies nasal congestion, Denies nasal discharge Cardiovascular: Reports shortness of breath, Denies chest pain, Denies leg edema Respiratory: Reports dyspnea, Denies cough, Denies cough with sputum Gastrointestinal: Denies abdominal pain, Denies BRBPR, Denies constipation, Denies diarrhea, Denies melena, Denies nausea, Denies vomiting Genitourinary: Denies dysuria, Denies hematuria Menstruation: Reports postmenopausal Musculoskeletal: Reports muscle weakness, Denies frequent falls, Denies myalgias Integumentary: Denies pruritus, Denies rash, Denies wounds Neurological: Reports weakness, Denies change in mentation, Denies numbness, Denies seizures Psychiatric: Denies anxiety, Denies depression Endocrine: Denies fatigue, Denies weight change Past Medical History Past Medical History: Coronary Artery Disease (CAD), Chest Pain / Angina, COPD, Dementia, GERD/Reflux, Hyperlipidemia, Hypertension, Osteoarthritis (OA), Renal Disease Additional Past Medical History / Comment(s): Chronic constipation, Dry Eye synd bruce, hypokalemia, CKD stage III, PVD, anemia History of Any Multi-Drug Resistant Organisms: None Reported Past Surgical History: Appendectomy, Breast Surgery, Cholecystectomy, Heart Catheterization, Hysterectomy Additional Past Surgical History / Comment(s): cataracts Past Anesthesia/Blood Transfusion Reactions: No Reported Reaction Smoking Status: Unknown if ever smoked - Past Family History Sister(s) Family Medical History: Cancer Additional Family Medical History / Comment(s): patient is unable to provide reliable history. Medications and Allergies Home Medications Medication Instructions Recorded Confirmed Type Furosemide [Lasix] 40 mg PO BID 06/10/15 03/28/20 History Artificial Tears-Hypromellose 1 drops BOTH EYES Q6H PRN 04/14/19 03/28/20 History [Artificial Tear Drops] Aspirin 81 mg PO DAILY 04/14/19 03/28/20 History Cholecalciferol [Vitamin D3 (25 1,000 unit PO DAILY 04/14/19 03/28/20 History Mcg = 1000 Iu)] Citalopram Hydrobromide [CeleXA] 20 mg PO DAILY 04/14/19 03/28/20 History Linaclotide [Linzess] 290 mcg PO DAILY 04/14/19 03/28/20 History Metoprolol Tartrate [Lopressor] 12.5 mg PO BID 04/14/19 03/28/20 History Potassium Chloride ER [K-Dur 10] 10 meq PO DAILY 04/14/19 03/28/20 History Atorvastatin [Lipitor] 20 mg PO HS 03/28/20 03/28/20 History Docusate Sodium [Dok] 200 mg PO HS 03/28/20 03/28/20 History Lisinopril [Zestril] 1.25 mg PO DAILY 03/28/20 03/28/20 History Allergies Allergy/AdvReac Type Severity Reaction Status Date / Time No Known Allergies Allergy Verified 03/28/20 23:16 Physical Exam Vitals: Vital Signs Temp Pulse Resp BP Pulse Ox 03/29/20 07:00 75 15 106/72 98 03/29/20 06:00 74 15 97/51 98 06/12/20 05:00 77 17 108/59 96 03/29/20 04:06 98.2 F 76 22 108/59 03/29/20 04:00 98.2 F 77 15 119/50 98 03/29/20 03:00 79 12 96/67 98 03/29/20 02:28 98.1 F 80 20 96/87 03/29/20 02:00 77 18 103/61 99 03/29/20 01:58 98.5 F 78 18 87/58 99 03/29/20 01:48 99.1 F 78 23 103/61 03/29/20 01:38 98.8 F 80 18 98/52 99 03/29/20 01:01 97.6 F 80 19 116/69 100 03/29/20 00:45 98.7 F 78 17 86/61 97 03/29/20 00:15 98.7 F 84 18 85/60 97 03/28/20 23:45 98.8 F 78 18 98/74 98 03/28/20 23:15 98.7 F 87 17 97/59 98 03/28/20 22:45 98.6 F 92 18 93/50 98 03/28/20 22:35 99 F 89 18 91/48 98 03/28/20 22:24 99 F 87 18 83/47 100 03/28/20 19:20 99 F 84 18 130/89 100 Intake and Output 03/28/20 03/29/20 03/29/20 22:59 06:59 14:59 Intake Total 0 720 75 Output Total 335 45 Balance 0 385 30 Intake: IV 100 75 .9 100 Sodium Chloride 0.9% 1, 75 000 ml @ 75 mls/hr IV . [id number] [facility] Rx#:[id number] Blood Product 0 620 Rc As-1 Unit 0 310 [id number] Rc As-1 Unit 310 [id number] Output: Urine 335 45 Other: Voiding Method Indwelling Catheter Weight 68.039 kg 77.9 kg HEENT: Head is atraumatic, normocephalic, pupils were equal round reactive to light and accommodations, extraocular muscle movement were intact. Oral mucous membranes are dry. Neck: Supple, no JVP, decreased carotid upstroke bilaterally. Chest: Clear to auscultation bilaterally, there is no crackles, no wheezes, no chest wall tenderness, no intercostal retractions. Heart: First heart sound is normal, second heart sound is normal, regular, no murmur. Abdomen: Soft, nontender, nondistended, positive bowel sounds. Orantes catheter draining clear ninoska urine. Extremities: No pedal edema bilaterally, dorsalis pedis palpable bilaterally. No calf tenderness. Neurologic examination: Patient is awake and alert and oriented to person, patient is pleasantly confused. No focal neuro deficits. Cranial nerves III-12 appear grossly intact. Results CBC & Chem 7: 03/30/20 05:19 03/30/20 05:19 Labs: Abnormal Lab Results - Last 24 Hours (Table) 03/28/20 03/28/20 03/28/20 Range/Units 10:00 20:27 20:27 RBC 2.02 L (3.80-5.40) m/uL Hgb 4.7 L* D (11.4-16.0) gm/dL Hct 15.4 L* (34.0-46.0) % MCV 76.3 L (80.0-100.0) fL MCH 23.3 L (25.0-35.0) pg MCHC 30.5 L (31.0-37.0) g/dL RDW (11.5-15.5) % Lymphocytes # 0.9 L (1.0-4.8) k/uL APTT (22.0-30.0) sec Sodium 132 L (137-145) mmol/L Chloride 97 L (98-107) mmol/L BUN 32 H (7-17) mg/dL Glucose 114 H (74-99) mg/dL POC Glucose (mg/dL) (75-99) mg/dL Calcium 7.9 L (8.4-10.2) mg/dL Total Protein 5.2 L (6.3-8.2) g/dL Albumin 2.6 L (3.5-5.0) g/dL Stool Occult Blood Positive H (Negative) Crossmatch 03/28/20 03/29/20 03/29/20 Range/Units 21:15 01:02 04:41 RBC (3.80-5.40) m/uL Hgb (11.4-16.0) gm/dL Hct (34.0-46.0) % MCV (80.0-100.0) fL MCH (25.0-35.0) pg MCHC (31.0-37.0) g/dL RDW (11.5-15.5) % Lymphocytes # (1.0-4.8) k/uL APTT 21.5 L (22.0-30.0) sec Sodium (137-145) mmol/L Chloride (98-107) mmol/L BUN (7-17) mg/dL Glucose (74-99) mg/dL POC Glucose (mg/dL) 118 H (75-99) mg/dL Calcium (8.4-10.2) mg/dL Total Protein (6.3-8.2) g/dL Albumin (3.5-5.0) g/dL Stool Occult Blood (Negative) Crossmatch See Detail 03/29/20 03/29/20 Range/Units 04:41 04:41 RBC 2.96 L (3.80-5.40) m/uL Hgb 7.7 L D (11.4-16.0) gm/dL Hct 24.6 L (34.0-46.0) % MCV (80.0-100.0) fL MCH (25.0-35.0) pg MCHC (31.0-37.0) g/dL RDW 16.9 H (11.5-15.5) % Lymphocytes # 0.8 L (1.0-4.8) k/uL APTT (22.0-30.0) sec Sodium 130 L (137-145) mmol/L Chloride (98-107) mmol/L BUN 30 H (7-17) mg/dL Glucose (74-99) mg/dL POC Glucose (mg/dL) (75-99) mg/dL Calcium 7.7 L (8.4-10.2) mg/dL Total Protein (6.3-8.2) g/dL Albumin (3.5-5.0) g/dL Stool Occult Blood (Negative) Crossmatch Thrombosis Risk Factor Assmnt - DVT/VTE Prophylaxis DVT/VTE Prophylaxis: Mechanical Prophylaxis ordered Assessment and Plan Plan: 1. Acute on chronic anemia, possible acute GI bleed with acute blood loss anemia. Stool for occult blood is positive. Consult with GI appreciated. Patient scheduled for EGD tomorrow. Monitor hemoglobin every 8 hours and transfuse to maintain hemoglobin of 7. Continue Protonix 40 mg IV twice daily. 2. Acute anemia most likely secondary to blood loss, possible chronic. Patient is status post transfusion of 2 units of packed RBCs. 3. Hyponatremia. Continue IV fluids and recheck BMP in the morning. 4. Chronic systolic heart failure, stable. Hold Lasix 40 mg twice daily. 5. Hypertension hypertensive cardiovascular disease. Continue metoprolol 12.5 mg orally twice every day hold lisinopril. 6. History of coronary artery disease with chronically occluded RCA. No complaints of chest pain. Hold aspirin. Continue Lipitor 20 mg at bedtime and Lopressor. 7. Chronic kidney disease stage III, stable. 8. Anemia of chronic disease. Stable at this time. 9. Hyperlipidemia. Continue Lipitor 10 mg orally once every day. 10. Gastroesophageal reflux disease. Continue Protonix twice daily 11. Alzheimer's dementia, stable. 12. Recurrent depression. Continue citalopram 20 mg daily. 13. Generalized osteoarthritis. Use Tylenol as needed. 14. Chronic dry eye. Continue artificial tears. 15. Vitamin D deficiency. Continue supplement. 16. COVID-19 testing in process. 17. CODE STATUS: Full code Patient will be admitted to the hospital for minimum of 2 night stay. Discharge plan: Return to [facility] early next week.
[2020-03-29] MEDS ORDERED: SODIUM CHLORIDE 0.9% 1,000 ML IV ONE (19:54)
--- NOTE | 2020-03-29 20:59 | CONS ---
CONSULTATION DATE OF DICTATION: 03/29/2020 REASON FOR CONSULTATION: Severe symptomatic anemia. HISTORY OF PRESENT ILLNESS: The patient is an 89-year-old pleasant white female, a resident of [facility], with history of hypertension, coronary artery disease, chronic kidney disease, hyperlipidemia and gastroesophageal reflux disease as well as dementia. She was sent to [facility] because of shortness of breath, fatigue, weakness and was noted to have a hemoglobin of 4.7 g/dL in the ER. She received 2 units of PRBC transfusion and her hemoglobin presently is 7.5 g/dL. We are consulted because of this issue. The patient has significant dementia and is a very poor historian. As per the nursing staff, since she came to the hospital she did not have any bleeding. There was questionable dark-colored stool. However, her stool for hemoccult was positive. She denies any abdominal pain. She reports no nausea, vomiting. She does not recall having any endoscopic workup in the past. PAST MEDICAL HISTORY: Her past medical history is significant for coronary artery disease, congestive heart failure, hypertensive cardiovascular disease, chronic kidney disease, hyperlipidemia, gastroesophageal reflux disease, dementia, depression, osteoarthritis. PAST SURGICAL HISTORY: Appendectomy, breast surgery, cholecystectomy, cardiac catheterization, hysterectomy, bilateral cataract surgery. HOME MEDICATIONS: Lasix, Artificial Tears, aspirin, vitamin D, Celexa, Linzess, Lopressor, potassium chloride, Lipitor, K-Dur, . ALLERGIES: NONE. SOCIAL HISTORY: No smoking. No alcohol use. FAMILY HISTORY: Sister had some kind of cancer. REVIEW OF SYSTEMS: CARDIOPULMONARY: She reports no chest pain or shortness of breath. GENITOURINARY: She denies any symptoms. NEUROLOGY: Some dementia. PSYCHIATRIC: Unremarkable. ENT/VISION: Unremarkable. CONSTITUTIONAL: Fatigue, weakness. No weight loss. HEMATOLOGY: Chronic anemia. PHYSICAL EXAMINATION: She appears comfortable. No apparent distress. Vital signs are stable. Blood pressure is 106/72, pulse rate 75, temperature 98.2. HEENT examination unremarkable. Conjunctivae pink. Sclerae anicteric. Oral cavity no lesions. NECK: No JVD or lymph node enlargement. CHEST: Clear to auscultation. HEART: Regular rate and rhythm. ABDOMEN: Soft. Bowel sounds are positive. No organomegaly. EXTREMITIES: No pedal edema. SKIN: No rashes. NEUROLOGIC: Awake. Oriented to name and place; not to time. LABS: WBC 5, hemoglobin 4.7, MCV 73. BUN was 30, creatinine 0.92. AST and ALT, T-bilirubin and alkaline phosphatase are normal. Albumin 2.6. Stool occult blood was positive. IMPRESSION: 1. Severe symptomatic anemia with a hemoglobin of 4.7, requiring 2 units of packed RBC transfusion. Repeat hemoglobin is 7.7 g/dL. She does have microcytosis and likely we are dealing with iron deficiency anemia, probably secondary to occult GI blood loss with possibility of an acute blood-loss anemia. She was noted to have Hemoccult-positive stool. Her BUN is elevated, which likely represents an upper GI source of bleeding. No prior history of peptic ulcer disease or recent NSAID use. 2. Chronic kidney disease, stage 3. 3. Congestive heart failure. 4. Hypertension. 5. Hyperlipidemia. 6. Gastroesophageal reflux disease. RECOMMENDATIONS: 1. Agree with PRBC transfusion. 2. Protonix 40 mg q.12 hours. 3. Will proceed with an upper endoscopy tomorrow, and if that is negative will consider a colonoscopy the following day. 4. Repeat CBC every 6 hours and transfuse if the hemoglobin is 7. Plan was discussed with the patient's . Thank you for this consultation. MMODL / IJN: [id number] /
[2020-03-29 21:09] LABS: Anisocytosis Slight; Basophils % (A) 1 %; Eosinophils # (A) 0.1 k/uL (0-0.7); Eosinophils % (A) 2 %; HCT 26.3 % (34.0-46.0); HGB 8.1 gm/dL (11.4-16.0); Hypochromasia Marked; Lymphocytes # (A) 0.7 k/uL (1.0-4.8); Lymphocytes % (A) 14 %; MCHC 30.9 g/dL (31.0-37.0); MCV 87.2 fL (80.0-100.0); Mean Platelet Volume 7.4; Monocytes # (A) 0.5 k/uL (0-1.0); Monocytes % (A) 10 %; Neutrophils # (A) 3.7 k/uL (1.3-7.7); Neutrophils % (A) 71 %; Platelet Count 209 k/uL (150-450); Poikilocytosis Moderate; RBC 3.02 m/uL (3.80-5.40); RDW 16.5 % (11.5-15.5); WBC 5.2 k/uL (3.8-10.6)
[2020-03-29] MEDS: ATORVASTATIN 20 MG TAB PO SCH (21:49)
[2020-03-29] MEDS: DOCUSATE 100 MG CAP PO SCH (21:49)
[2020-03-30 05:43] LABS: Anisocytosis Slight; Basophils % (A) 1 %; Eosinophils # (A) 0.1 k/uL (0-0.7); Eosinophils % (A) 2 %; HGB 8.3 gm/dL (11.4-16.0); Hypochromasia Marked; Lymphocytes # (A) 0.7 k/uL (1.0-4.8); Lymphocytes % (A) 14 %; MCH 27.5 pg (25.0-35.0); MCHC 31.9 g/dL (31.0-37.0); MCV 85.9 fL (80.0-100.0); Mean Platelet Volume 7.4; Monocytes # (A) 0.4 k/uL (0-1.0); Monocytes % (A) 8 %; Neutrophils # (A) 3.4 k/uL (1.3-7.7); Neutrophils % (A) 73 %; Platelet Count 211 k/uL (150-450); Poikilocytosis Moderate; RBC 3.02 m/uL (3.80-5.40); WBC 4.6 k/uL (3.8-10.6)
[2020-03-30 06:19] LABS: Potassium 3.5 mmol/L (3.5-5.1)
[2020-03-30] MEDS ORDERED: Potassium Replacement Protocol 1 EACH MISC MISCELLANE PRN (06:24)
[2020-03-30] MEDS: POTASSIUM CHLORIDE 10 MEQ in WATER FOR INJECTION 1 100ML.BAG IVPB SCH ×4 (06:51→10:56)
[2020-03-30] MEDS ORDERED: PROPOFOL 10 MG/ML 20 ML VIAL IV ONE (07:35)
[2020-03-30] MEDS ORDERED: IV FLUID CONTINUATION 500 ML IV ONE (07:42)
--- NOTE | 2020-03-30 07:55 | P.PCN ---
Date of Procedure: 03/30/20 Procedure(s) Performed: BRIEF HISTORY: Patient is a 89-year-old, pleasant, female, particularly symptomatic anemia and hemoglobin of 6.3 g/dL requiring 2 units of blood transfusion. No active bleeding noted. Because of clinical suspicion for upper GI source of bleeding she is scheduled for an upper endoscopy today. PROCEDURE PERFORMED: Esophagogastroduodenoscopy. PREOPERATIVE DIAGNOSIS: Severe symptomatic anemia rule out upper GI source of bleeding. IV sedation per anesthesia. PROCEDURE: After informed consent was obtained, the patient was brought into the endoscopy unit. IV sedation was administered by Anesthesia under continuous monitoring. Initially the Olympus GIF-140 video endoscope was inserted into the mouth. Esophagus intubated without any difficulty. It was gradually advanced into the stomach and duodenum and carefully examined. The bulb and the second part of the duodenum appeared normal. The scope at this time was withdrawn to the stomach, adequately insufflated with air, and upon careful examination, mucosa of the antrum, body, cardia and the fundus appeared normal. The scope was then withdrawn into the esophagus. There was a moderate size hiatal hernia noted. The GE junction was located at 31 cm from the incisors. There was a deep ulceration noted at the GE junction measuring about 1 cm in size with no active bleeding. Biopsies were done from the margin of the ulcer and then patient had brisk oozing identified and subsequently stopped. The very erosions noted in the distal esophagus extending from 24-30 cm from the incisors consistent with LA grade B reflux esophagitis. The rest of the esophagus appeared normal and the patient tolerated the procedure well. IMPRESSION: 1. Severe ulcerative esophagitis involving the distal esophagus with a 1 cm GE junction ulcer status post biopsy. 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 Moderate size hiatal hernia. RECOMMENDATIONS: The findings of this examination were discussed with the patient. She was advised to follow with the biopsy results. She will continue on Protonix 40 mg twice daily. She'll be started on full liquid diet. Monitor CBC on a daily basis.
[2020-03-30] MEDS: CHOLECALCIFEROL 1,000 UNIT TAB PO SCH (09:14)
[2020-03-30] MEDS: PANTOPRAZOLE 40 MG/10 ML VIAL IVP SCH ×2 (09:14→20:29)
[2020-03-30] MEDS: CITALOPRAM HYDROBROMIDE 20 MG TAB PO SCH (09:14)
[2020-03-30] MEDS: SODIUM CHLORIDE 0.9% 1,000 ML IV SCH ×2 (09:15→21:49)
--- NOTE | 2020-03-30 09:36 | P.PN ---
Subjective Progress Note Date: 03/30/20 This is an 89-year-old female patient of mine residing at a long-term resident at [facility] with past medical history of chronic systolic heart failure, hypertension, coronary artery disease with chronically occluded RCA, hypertensive cardiovascular disease, chronic kidney disease stage III, chronic anemia, hyperlipidemia, gastroesophageal reflux disease, Alzheimer's dementia, recurrent depression, generalized osteoarthritis, chronic dry eye, vitamin D deficiency. Patient was sent into [facility] emergency center for evaluation of difficulty breathing, lethargy and weakness. She had a documented drop in her pulse ox 80s. Patient has baseline confusion and is unable to provide reliable history. Patient was found to be afebrile, heart rate 84, blood pressure 130/89, pulse ox 100% EKG was normal sinus rhythm with a left bundle branch block. Hemoglobin came back at 4.7. Sodium 132, potassium 3.6, chloride 97, CO2 26, BUN 32 and creatinine 0.95, blood sugar 114. Liver function tests were within normal limits. Lactic acid 1.2. Troponin negative. ProBNP 1160. Patient was admitted into intensive care unit, transfuse 2 units packed RBCs, consult with pier runner. Patient has not had a bowel movement since admission but alcohol stool was positive. Patient has been seen by GI with plan for EGD tomorrow. 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 Objective - Vital Signs Vital signs: Vital Signs Temp 98.6 F 03/30/20 04:00 Pulse 65 03/30/20 09:00 Resp 19 03/30/20 09:00 BP 115/58 03/30/20 09:00 Pulse Ox 99 03/30/20 09:00 Intake & Output 03/29/20 03/30/20 03/30/20 18:59 06:59 18:59 Intake Total 1550 1510 425 Output Total 475 720 260 Balance 1075 790 165 Weight 85 kg Intake: IV 1300 900 425 Potassium Chloride 10 meq 400 100 In Water For Injection 1 100ml.bag @ 100 mls/hr IVPB Q1HR NATHALY Rx#: [id number] Sodium Chloride 0.9% 1, 900 900 225 000 ml @ 75 mls/hr IV . [id number] NATHALY Rx#:[id number] Oral 250 300 Blood Product 0 310 Rc As-1 Unit 0 310 [id number] Output: Urine 475 720 260 Other: Voiding Method Indwelling Catheter Indwelling Catheter Indwelling Catheter - Exam HEENT: Head is atraumatic, normocephalic, pupils were equal round reactive to l ight and accommodations, extraocular muscle movement were intact. Oral mucous membranes are dry. Neck: Supple, no JVP, decreased carotid upstroke bilaterally. Chest: Clear to auscultation bilaterally, there is no crackles, no wheezes, no chest wall tenderness, no intercostal retractions. Heart: First heart sound is normal, second heart sound is normal, regular, no murmur. Abdomen: Soft, nontender, nondistended, positive bowel sounds. Orantes catheter draining clear ninoska urine. Extremities: No pedal edema bilaterally, dorsalis pedis palpable bilaterally. No calf tenderness. Neurologic examination: Patient is awake and alert and oriented to person, patient is pleasantly confused. No focal neuro deficits. Cranial nerves III-12 appear grossly intact. - Labs CBC & Chem 7: 03/30/20 05:19 03/30/20 05:19 Labs: Abnormal Lab Results - Last 24 Hours (Table) 03/28/20 03/29/20 03/29/20 Range/Units 21:15 11:48 20:52 RBC 2.71 L 3.02 L (3.80-5.40) m/uL Hgb 7.2 L 8.1 L (11.4-16.0) gm/dL Hct 22.6 L 26.3 L (34.0-46.0) % MCHC 30.9 L (31.0-37.0) g/dL RDW 16.5 H 16.5 H (11.5-15.5) % Lymphocytes # 0.6 L 0.7 L (1.0-4.8) k/uL Sodium (137-145) mmol/L Chloride (98-107) mmol/L Calcium (8.4-10.2) mg/dL Crossmatch See Detail 03/30/20 03/30/20 Range/Units 05:19 05:19 RBC 3.02 L (3.80-5.40) m/uL Hgb 8.3 L (11.4-16.0) gm/dL Hct 26.0 L (34.0-46.0) % MCHC (31.0-37.0) g/dL RDW 16.0 H (11.5-15.5) % Lymphocytes # 0.7 L (1.0-4.8) k/uL Sodium 134 L (137-145) mmol/L Chloride 108 H (98-107) mmol/L Calcium 7.0 L (8.4-10.2) mg/dL Crossmatch Assessment and Plan Plan: Assessment and Plan Plan: 1. Acute on chronic anemia, possible acute GI bleed with acute blood loss anemia. Stool for occult blood is positive, status post EGD that showed. Esophagus and erosive esophagitis, biopsies were taken, continue Protonix 40 mg IV push every 12 hours, advance diet as tolerated, patient may be transferred outside the ICU to the medical floor. 2. Acute anemia most likely secondary to blood loss, possible chronic. Patient is status post transfusion of 2 units of packed RBCs. 3. Hyponatremia. Continue IV fluids and recheck BMP in the morning. 4. Chronic systolic heart failure, stable. Hold Lasix 40 mg twice daily. 5. Hypertension hypertensive cardiovascular disease. Continue metoprolol 12.5 mg orally twice every day hold lisinopril. 6. History of coronary artery disease with chronically occluded RCA. No complaints of chest pain. Hold aspirin. Continue Lipitor 20 mg at bedtime and Lopressor. 7. Chronic kidney disease stage III, stable. 8. Anemia of chronic disease. Stable at this time. 9. Hyperlipidemia. Continue Lipitor 10 mg orally once every day. 10. Gastroesophageal reflux disease. Continue Protonix twice daily 11. Alzheimer's dementia, stable. 12. Recurrent depression. Continue citalopram 20 mg daily. 13. Generalized osteoarthritis. Use Tylenol as needed. 14. Chronic dry eye. Continue artificial tears. 15. Vitamin D deficiency. Continue supplement. 16. COVID-19 testing in process. 17. CODE STATUS: Full code 18. Plan is to send the patient back to [facility] [place] on Wednesday
--- NOTE | 2020-03-30 10:58 | P.PN ---
Subjective Progress Note Date: 03/30/20 Principal diagnosis: Subacute upper GI bleeding. This is an 89-year-old female, custodial resident, patient was noted to have worsening weakness, and shortness of breath while at the custodial. Patient was told that her pulse oximeter dropped into the 80s when she ambulated, and she was advised to go to the ER. Workup in the ER included a chest x-ray which was basically normal except for some old rib fractures on the left side. Patient was also noted to have an extremely low hemoglobin, 4.7. With low indices suggestive of iron deficiency or blood loss anemia. Stool occult blood was positive. Hence the patient was admitted to the ICU for further evaluation and treatment. The patient is a poor historian, she had no symptoms, except of being weak. Since admission the patient received 2 units of packed RBCs, and her present hemoglobin is 7.2. No previous history of GI bleeding. No documented history of anemia in the chart. Patient cannot tell if she had a previous workup for GI bleeding including colonoscopy or EGD. Patient was reevaluated today on 03/30/20, remains in the ICU, hemodynamically stable, blood pressure was noted to be marginal yesterday, but the patient responded well to fluids and she was given another unit of packed RBCs for low b lood pressure. She had a total of 3 units of packed RBCs since admission, and her hemoglobin today is 8.3. 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 Biopsies are pending. Patient remains on Protonix. She is hemodynamically stable today, and in no distress. She is on room air, and O2 saturation is 99%. Overall the patient is doing quite well, and I plan to transfer the patient out of the ICU to a regular medical floor I held her blood pressure medications since her blood pressure was marginal throughout the day yesterday. Objective - Vital Signs Vital signs: Vital Signs Temp 98.6 F 03/30/20 04:00 Pulse 65 03/30/20 09:00 Resp 19 03/30/20 09:00 BP 115/58 03/30/20 09:00 Pulse Ox 99 03/30/20 09:00 Intake & Output 03/29/20 03/30/20 03/30/20 18:59 06:59 18:59 Intake Total 1550 1510 425 Output Total 475 720 260 Balance 1075 790 165 Weight 85 kg Intake: IV 1300 900 425 Potassium Chloride 10 meq 400 100 In Water For Injection 1 100ml.bag @ 100 mls/hr IVPB Q1HR NATAHLY Rx#: [id number] Sodium Chloride 0.9% 1, 900 900 225 000 ml @ 75 mls/hr IV . [id number] NATHALY Rx#:[id number] Oral 250 300 Blood Product 0 310 Rc As-1 Unit 0 310 [id number] Output: Urine 475 720 260 Other: Voiding Method Indwelling Catheter Indwelling Catheter Indwelling Catheter - Exam Physical Exam: Revealed 89-year-old female, resident, slightly confused, in no distress. Head: Atraumatic, normocephalic. HEENT:[Neck is supple.] [No neck masses.] [No thyromegaly.] [No JVD.] Chest: [Clear throughout, no crackles, no rhonchi, no wheezes.] Symmetrical chest expansion. Cardiac Exam: [Normal S1 and S2, no S3 gallop, no murmur.] Abdomen: [Soft, nontender, no megaly, no rebound, no guarding, normal bowel s ounds.] Extremities: [No clubbing, no edema, no cyanosis.] Neurological Exam: Awake, but confused, otherwise no gross focal deficits. Psychiatric: Blunted mood affect and poor mental status. Skin: No rashes. - Labs CBC & Chem 7: 03/30/20 05:19 03/30/20 05:19 Labs: Abnormal Lab Results - Last 24 Hours (Table) 03/28/20 03/29/20 03/29/20 Range/Units 21:15 11:48 20:52 RBC 2.71 L 3.02 L (3.80-5.40) m/uL Hgb 7.2 L 8.1 L (11.4-16.0) gm/dL Hct 22.6 L 26.3 L (34.0-46.0) % MCHC 30.9 L (31.0-37.0) g/dL RDW 16.5 H 16.5 H (11.5-15.5) % Lymphocytes # 0.6 L 0.7 L (1.0-4.8) k/uL Sodium (137-145) mmol/L Chloride (98-107) mmol/L Calcium (8.4-10.2) mg/dL Crossmatch See Detail 03/30/20 03/30/20 Range/Units 05:19 05:19 RBC 3.02 L (3.80-5.40) m/uL Hgb 8.3 L (11.4-16.0) gm/dL Hct 26.0 L (34.0-46.0) % MCHC (31.0-37.0) g/dL RDW 16.0 H (11.5-15.5) % Lymphocytes # 0.7 L (1.0-4.8) k/uL Sodium 134 L (137-145) mmol/L Chloride 108 H (98-107) mmol/L Calcium 7.0 L (8.4-10.2) mg/dL Crossmatch Assessment and Plan Assessment: Impression: subacute upper GI bleeding secondary to erosive esophagitis and 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 Blood loss anemia secondary to GI bleeding, as noted above. History of underlying coronary artery disease based on previous cardiac catheterization. Underlying dementia. . Benign essential hypertension. GERD without esophagitis. History of left sided rib fractures most likely secondary to fall. Recommendation: Transfer patient out of the ICU to a regular medical floor. Continue to monitor hemoglobin daily for the next couple of days. Continue Protonix. Endoscopy report was reviewed, awaiting esophageal biopsies. Hold blood pressure medication as long as her blood pressure is marginal. Discussed her condition with the admitting physician P We'll continue to follow. Time with Patient: Less than 30
[2020-03-30] MEDS: HEPARIN SODIUM,PORCINE 5,000 UNIT/ML 1 ML VIAL SQ SCH (15:54)
[2020-03-30] MEDS: ATORVASTATIN 20 MG TAB PO SCH (20:30)
[2020-03-30] MEDS: DOCUSATE 100 MG CAP PO SCH (20:30)
[2020-03-30] MEDS: METOPROLOL TARTRATE 12.5 MG TAB PO SCH (20:40)
[2020-03-31] MEDS: HEPARIN SODIUM,PORCINE 5,000 UNIT/ML 1 ML VIAL SQ SCH ×3 (00:11→15:53)
[2020-03-31 06:46] LABS: Anisocytosis Slight; Basophils % (A) 1 %; Eosinophils # (A) 0.1 k/uL (0-0.7); Eosinophils % (A) 3 %; HCT 27.7 % (34.0-46.0); Hypochromasia Marked; Lymphocytes # (A) 0.7 k/uL (1.0-4.8); Lymphocytes % (A) 15 %; MCH 28.1 pg (25.0-35.0); MCHC 32.5 g/dL (31.0-37.0); MCV 86.4 fL (80.0-100.0); Mean Platelet Volume 7.2; Monocytes # (A) 0.4 k/uL (0-1.0); Monocytes % (A) 9 %; Neutrophils # (A) 3.3 k/uL (1.3-7.7); Neutrophils % (A) 70 %; Platelet Count 233 k/uL (150-450); Poikilocytosis Moderate; RBC 3.21 m/uL (3.80-5.40); RDW 17.1 % (11.5-15.5); WBC 4.6 k/uL (3.8-10.6)
[2020-03-31 07:02] LABS: Calcium 7.3 mg/dL (8.4-10.2); Potassium 3.8 mmol/L (3.5-5.1); Total Bilirubin 0.6 mg/dL (0.2-1.3); Total Protein 4.3 g/dL (6.3-8.2)
[2020-03-31] MEDS: CHOLECALCIFEROL 1,000 UNIT TAB PO SCH (08:18)
[2020-03-31] MEDS: CITALOPRAM HYDROBROMIDE 20 MG TAB PO SCH (08:18)
[2020-03-31] MEDS: METOPROLOL TARTRATE 12.5 MG TAB PO SCH ×2 (08:18→21:59)
[2020-03-31] MEDS: PANTOPRAZOLE 40 MG/10 ML VIAL IVP SCH ×2 (08:19→21:59)
[2020-03-31] MEDS: SODIUM CHLORIDE 0.9% 1,000 ML IV SCH (12:47)
--- NOTE | 2020-03-31 12:52 | P.PN ---
Subjective Progress Note Date: 03/31/20 This is an 89-year-old female patient of mine residing at a long-term resident at [facility] with past medical history of chronic systolic heart failure, hypertension, coronary artery disease with chronically occluded RCA, hypertensive cardiovascular disease, chronic kidney disease stage III, chronic anemia, hyperlipidemia, gastroesophageal reflux disease, Alzheimer's dementia, recurrent depression, generalized osteoarthritis, chronic dry eye, vitamin D deficiency. Patient was sent into [facility] emergency center for evaluation of difficulty breathing, lethargy and weakness. She had a documented drop in her pulse ox 80s. Patient has baseline confusion and is unable to provide reliable history. Patient was found to be afebrile, heart rate 84, blood pressure 130/89, pulse ox 100% EKG was normal sinus rhythm with a left bundle branch block. Hemoglobin came back at 4.7. Sodium 132, potassium 3.6, chloride 97, CO2 26, BUN 32 and creatinine 0.95, blood sugar 114. Liver function tests were within normal limits. Lactic acid 1.2. Troponin negative. ProBNP 1160. Patient was admitted into intensive care unit, transfuse 2 units packed RBCs, consult with certified fire investigator. Patient has not had a bowel movement since admission but alcohol stool was positive. Patient has been seen by GI with plan for EGD tomorrow. 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 03/31: Normal is laying down in bed in no apparent distress she has moved out of the ICU she is currently in the regular floor, she denies any chest pain, she d oes complain of some pain in the mid abdomen, she has a good appetite she ate most of her breakfast, and she is hungry asking for lunch, she will likely be transferred back to [facility] care facility tomorrow morning. Objective - Vital Signs Vital signs: Vital Signs Temp 97.7 F 03/31/20 05:51 Pulse 63 03/31/20 05:51 Resp 16 03/31/20 05:51 BP 136/70 03/31/20 05:51 Pulse Ox 97 03/31/20 05:51 Intake & Output 03/30/20 03/31/20 03/31/20 18:59 06:59 18:59 Intake Total 1100 900 Output Total 860 317 Balance 240 583 Intake: IV 800 Potassium Chloride 10 meq 100 In Water For Injection 1 100ml.bag @ 100 mls/hr IVPB Q1HR NATHALY Rx#: [id number] Sodium Chloride 0.9% 1, 600 000 ml @ 75 mls/hr IV . [id number] NATHALY Rx#:[id number] Intake, IV Titration 300 900 Amount Potassium Chloride 10 meq 300 In Water For Injection 1 100ml.bag @ 100 mls/hr IVPB Q1HR NATHALY Rx#: [id number] Sodium Chloride 0.9% 1, 900 000 ml @ 75 mls/hr IV . [id number] NATHALY Rx#:[id number] Output: Urine 860 150 Post Void Residual 167 Other: Voiding Method Indwelling Catheter Diaper Diaper # Voids 1 - Exam HEENT: Head is atraumatic, normocephalic, pupils were equal round reactive to light and accommodations, extraocular muscle movement were intact. Oral mucous membranes are dry. Neck: Supple, no JVP, decreased carotid upstroke bilaterally. Chest: Clear to auscultation bilaterally, there is no crackles, no wheezes, no chest wall tenderness, no intercostal retractions. Heart: First heart sound is normal, second heart sound is normal, regular, no murmur. Abdomen: Soft, nontender, nondistended, positive bowel sounds. Oarntes catheter draining clear ninoska urine. Extremities: No pedal edema bilaterally, dorsalis pedis palpable bilaterally. No calf tenderness. Neurologic examination: Patient is awake and alert and oriented to person, patient is pleasantly confused. No focal neuro deficits. Cranial nerves III-12 appear grossly intact. - Labs CBC & Chem 7: 03/31/20 06:17 03/31/20 06:17 Labs: Abnormal Lab Results - Last 24 Hours (Table) 03/31/20 03/31/20 Range/Units 06:17 06:17 RBC 3.21 L (3.80-5.40) m/uL Hgb 9.0 L (11.4-16.0) gm/dL Hct 27.7 L (34.0-46.0) % RDW 17.1 H (11.5-15.5) % Lymphocytes # 0.7 L (1.0-4.8) k/uL Sodium 132 L (137-145) mmol/L Chloride 108 H (98-107) mmol/L Calcium 7.3 L (8.4-10.2) mg/dL Total Protein 4.3 L (6.3-8.2) g/dL Albumin 2.0 L (3.5-5.0) g/dL Assessment and Plan Plan: Assessment and Plan Plan: 1. Acute on chronic anemia, possible acute GI bleed with acute blood loss anemia. Stool for occult blood is positive, status post EGD that showed Shultz Esophagus and erosive esophagitis, biopsies were taken, continue Protonix 40 mg IV push every 12 hours, advance diet as tolerated, patient may be transferred outside the ICU to the medical floor. 2. Acute anemia most likely secondary to blood loss, possible chronic. Patient is status post transfusion of 2 units of packed RBCs. 3. Hyponatremia. Continue IV fluids and recheck BMP in the morning. 4. Chronic systolic heart failure, stable. Hold Lasix 40 mg twice daily. 5. Hypertension hypertensive cardiovascular disease. Continue metoprolol 12.5 mg orally twice every day we will resume lisinopril. 6. History of coronary artery disease with chronically occluded RCA. No complaints of chest pain. Hold aspirin. Continue Lipitor 20 mg at bedtime and Lopressor. 7. Chronic kidney disease stage III, stable. 8. Anemia of chronic disease. Stable at this time. 9. Hyperlipidemia. Continue Lipitor 10 mg orally once every day. 10. Gastroesophageal reflux disease. Continue Protonix twice daily 11. Alzheimer's dementia, stable. 12. Recurrent depression. Continue citalopram 20 mg daily. 13. Generalized osteoarthritis. Use Tylenol as needed. 14. Chronic dry eye. Continue artificial tears. 15. Vitamin D deficiency. Continue supplement. 16. COVID-19 testing in process. 17. CODE STATUS: Full code 18. Plan is to send the patient back to [facility] on Wednesday
--- NOTE | 2020-03-31 17:06 | PN ---
PROGRESS NOTE DATE OF SERVICE: 03/31/2020 The patient is an 89-year-old pleasant white female admitted to hospital with severe symptomatic anemia with a hemoglobin of 4.5, requiring 3 units of blood transfusion. She underwent an upper endoscopy yesterday that revealed evidence of severe ulcerative esophagitis. She denies any abdominal pain. She reports no nausea, vomiting. As per the nursing staff, she has been doing well. She remains on a clear liquid diet, tolerating well. PHYSICAL EXAMINATION: She appears comfortable. No apparent distress. Vital signs stable. Blood pressure is 133/65, pulse is 68. Temperature 97.9. HEENT examination unremarkable. Conjunctivae pink. Sclerae anicteric. Oral cavity no lesions. NECK no JVD or lymph node enlargement. CHEST: Clear to auscultation. HEART: Regular rate and rhythm. ABDOMEN: Soft, bowel sounds are positive. No organomegaly. EXTREMITIES: No pedal edema. SKIN no rashes. NEUROLOGIC: Alert and oriented x3. No focal deficits. LABS: WBC 4.6, hemoglobin 9, platelets 233. Rest of the labs are within normal limits. BUN is 11, creatinine 0.79. IMPRESSION: 1. Severe symptomatic anemia and questionable dark-colored stool. Hemoglobin 4.5 status post 3 units of PRBC transfusion. Today hemoglobin 9. Status post EGD yesterday that showed severe reflux esophagitis. 2. Gastroesophageal reflux disease. EGD showed severe reflux esophagitis on Protonix 40 mg twice daily, doing well. 3. Hyponatremia gradually improving. 4. History of coronary artery disease. 5. Chronic kidney disease stage 3. RECOMMENDATION: 1. Continue Protonix 40 mg twice daily. 2. Advance diet as tolerated. 3. Monitor CBC on a daily basis. 4. We will follow with you closely. Thank you for this consultation. MMODL / IJN: [id number] /
[2020-03-31] MEDS ORDERED: ACETAMINOPHEN TAB 325 MG TAB PO PRN (18:13)
[2020-03-31] MEDS: DOCUSATE 100 MG CAP PO SCH (21:59)
[2020-03-31] MEDS: ATORVASTATIN 20 MG TAB PO SCH (21:59)
[2020-03-31 22:04] VITALS: RESP 16
[2020-04-01] MEDS: HEPARIN SODIUM,PORCINE 5,000 UNIT/ML 1 ML VIAL SQ SCH ×2 (00:56→09:17)
[2020-04-01] MEDS: SODIUM CHLORIDE 0.9% 1,000 ML IV SCH (02:00)
[2020-04-01 06:10] VITALS: BP 96/58; PULSE 70; TEMP 98.2
[2020-04-01 08:12] LABS: Calcium 7.3 mg/dL (8.4-10.2); Potassium 3.8 mmol/L (3.5-5.1)
--- NOTE | 2020-04-01 08:24 | P.DS ---
Providers Date of admission: 03/28/20 22:37 Expected date of discharge: 04/01/20 Attending physician: Elza Meadows Consults: 03/28/20 22:37 Consult Physician Routine Consulting Provider: Chely Alejandra Consult Reason/Comments: GI bleed Do you want consulting provider notified?: Yes Consult Physician Stat Consulting Provider: Reyes Eugene Consult Reason/Comments: GI bleed, critical care management Do you want consulting provider notified?: Yes Primary care physician: Elza Meadows [facility] Course: This is an 89-year-old female patient of mine residing at a long-term resident at [facility] with past medical history of chronic systolic heart failure, hypertension, coronary artery disease with chronically occluded RCA, hypertensive cardiovascular disease, chronic kidney disease stage III, chronic anemia, hyperlipidemia, gastroesophageal reflux disease, Alzheimer's dementia, recurrent depression, generalized osteoarthritis, chronic dry eye, vitamin D deficiency. Patient was sent into [facility] emergency center for evaluation of difficulty breathing, lethargy and weakness. She had a documented drop in her pulse ox 80s. Patient has baseline confusion and is unable to provide reliable history. Patient was found to be afebrile, heart rate 84, blood pressure 130/89, pulse ox 100% EKG was normal sinus rhythm with a left bundle branch block. Hemoglobin came back at 4.7. Sodium 132, potassium 3.6, chloride 97, CO2 26, BUN 32 and creatinine 0.95, blood sugar 114. Liver function tests were within normal limits. Lactic acid 1.2. Troponin negative. ProBNP 1160. Patient was admitted into intensive care unit, transfuse 2 units packed RBCs, consult with hose finisher. Patient has not had a bowel movement since admission but alcohol stool was positive. Patient has been seen by GI with plan for EGD tomorrow. 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 03/31: Normal is laying down in bed in no apparent distress she has moved out of the ICU she is currently in the regular floor, she denies any chest pain, she does complain of some pain in the mid abdomen, she has a good appetite she ate most of her breakfast, and she is hungry asking for lunch, she will likely be transferred back to [facility] care facility tomorrow morning. 04/01: Dr. Alejandra has recommended continuing Protonix 40 mg twice daily and prescription for 30 been sent to the patient's pharmacy. Repeat hemoglobin is 8.9. Patient is tolerating a regular diet. Patient has been afebrile, heart rate 70, blood pressure 96/58, pulse ox 97% on 2 L nasal cannula. Patient will be returning to [facility] today in stable condition. Discharge diagnoses: 1. Acute on chronic anemia, possible acute GI bleed with acute blood loss anemia. 2. Acute anemia most likely secondary to blood loss, possible chronic. 3. Hyponatremia. 4. Chronic systolic heart failure, stable. 5. Hypertension hypertensive cardiovascular disease. 6. History of coronary artery disease with chronically occluded RCA. No complaints of chest pain. Hold aspirin. 7. Chronic kidney disease stage III. 8. Anemia of chronic disease. 9. Hyperlipidemia. 10. Gastroesophageal reflux disease. 11. Alzheimer's dementia. 12. Recurrent depression. 13. Generalized osteoarthritis. 14. Chronic dry eye. 15. Vitamin D deficiency. Patient Condition at Discharge: Fair Plan - Discharge Summary New Discharge Prescriptions: New Pantoprazole [Protonix] 40 mg PO AC-BID 30 Days #60 Furosemide [Lasix] 40 mg PO DAILY tab Acetaminophen Tab [Tylenol] 650 mg PO Q4HR PRN tab PRN Reason: Fever And/ Or Pain Lisinopril [Zestril] 2.5 mg PO DAILY tab Continue Artificial Tears-Hypromellose [Artificial Tear Drops] 1 drops BOTH EYES Q6H PRN PRN Reason: Dry Eye(S) Metoprolol Tartrate [Lopressor] 12.5 mg PO BID Potassium Chloride ER [K-Dur 10] 10 meq PO DAILY Citalopram Hydrobromide [CeleXA] 20 mg PO DAILY Cholecalciferol [Vitamin D3 (25 Mcg = 1000 Iu)] 1,000 unit PO DAILY Docusate Sodium [Dok] 200 mg PO HS Atorvastatin [Lipitor] 20 mg PO HS Discontinued Furosemide [Lasix] 40 mg PO BID Linaclotide [Linzess] 290 mcg PO DAILY Aspirin 81 mg PO DAILY Lisinopril [Zestril] 1.25 mg PO DAILY Discharge Medication List Artificial Tears-Hypromellose [Artificial Tear Drops] 1 drops BOTH EYES Q6H PRN 04/14/19 [History] Cholecalciferol [Vitamin D3 (25 Mcg = 1000 Iu)] 1,000 unit PO DAILY 04/14/19 [History] Citalopram Hydrobromide [CeleXA] 20 mg PO DAILY 04/14/19 [History] Metoprolol Tartrate [Lopressor] 12.5 mg PO BID 04/14/19 [History] Potassium Chloride ER [K-Dur 10] 10 meq PO DAILY 04/14/19 [History] Atorvastatin [Lipitor] 20 mg PO HS 03/28/20 [History] Docusate Sodium [Dok] 200 mg PO HS 03/28/20 [History] Acetaminophen Tab [Tylenol] 650 mg PO Q4HR PRN tab 04/01/20 [Rx] Furosemide [Lasix] 40 mg PO DAILY tab 04/01/20 [Rx] Lisinopril [Zestril] 2.5 mg PO DAILY tab 04/01/20 [Rx] Pantoprazole [Protonix] 40 mg PO AC-BID 30 Days #60 tablet. 04/01/20 [Rx] Follow up Appointment(s)/Referral(s): Chely Alejandra MD [STAFF PHYSICIAN] - 2 Weeks Elza Meadows MD [Primary Care Provider] - 1 Week (at [facility]) Discharge Disposition: TRANSFER TO SNF/ECF
[2020-04-01 08:27] LABS: Anisocytosis Slight; Basophils % (A) 0 %; Eosinophils # (A) 0.1 k/uL (0-0.7); Eosinophils % (A) 3 %; HCT 27.4 % (34.0-46.0); HGB 8.9 gm/dL (11.4-16.0); Hypochromasia Marked; Lymphocytes # (A) 0.8 k/uL (1.0-4.8); Lymphocytes % (A) 18 %; MCHC 32.4 g/dL (31.0-37.0); MCV 86.4 fL (80.0-100.0); Mean Platelet Volume 7.5; Monocytes # (A) 0.4 k/uL (0-1.0); Monocytes % (A) 9 %; Neutrophils % (A) 68 %; Platelet Count 226 k/uL (150-450); Poikilocytosis Moderate; RBC 3.18 m/uL (3.80-5.40); RDW 17.3 % (11.5-15.5); WBC 4.4 k/uL (3.8-10.6)
[2020-04-01] MEDS ORDERED: LISINOPRIL 2.5 MG TAB PO SCH (09:00)
[2020-04-01] MEDS ORDERED: FUROSEMIDE 40 MG TAB PO SCH (09:00)
[2020-04-01] MEDS ORDERED: POTASSIUM CHLORIDE ER 10 MEQ TAB.ER.PRT PO SCH (09:00)
[2020-04-01] MEDS: CITALOPRAM HYDROBROMIDE 20 MG TAB PO SCH (09:15)
[2020-04-01] MEDS: METOPROLOL TARTRATE 12.5 MG TAB PO SCH (09:15)
[2020-04-01] MEDS: PANTOPRAZOLE 40 MG/10 ML VIAL IVP SCH (09:16)
[2020-04-01] MEDS: CHOLECALCIFEROL 1,000 UNIT TAB PO SCH (09:22)
[2020-04-01] MEDS ORDERED: FUROSEMIDE 10 MG/ML 2 ML VIAL IV ONE (10:02)
[2020-04-01] MEDS ORDERED: PANTOPRAZOLE 40 MG TABLET PO SCH (17:30)
== END 2020-04-01 13:16 | DRG 381 ==
LOC: EC 19:17 → 2SICU 22:37 → 5NMEDONC 03-30 21:18
PROVIDERS: ADMIT Internal Medicine; ATTEND Internal Medicine
PROC: 30233N1 Transfusion of Nonautologous Red Blood Cells into Peripheral Vein, Percutaneous Approach (ICD-10-PCS; principal; 2020-03-30 07:00)
PROC: 0DB58ZX Excision of Esophagus, Via Natural or Artificial Opening Endoscopic, Diagnostic (ICD-10-PCS; principal; 2020-03-30 07:00)
DX: K22.11 Ulcer of esophagus with bleeding (principal); D62 Acute posthemorrhagic anemia; I50.22 Chronic systolic (congestive) heart failure; I13.0 Hypertensive heart and chronic kidney disease with heart failure and stage 1 through stage 4 chronic kidney disease, or unspecified chronic kidney disease; E87.1 Hypo-osmolality and hyponatremia; F33.9 Major depressive disorder, recurrent, unspecified; I25.10 Atherosclerotic heart disease of native coronary artery without angina pectoris; I44.7 Left bundle-branch block, unspecified; J44.9 Chronic obstructive pulmonary disease, unspecified; F41.9 Anxiety disorder, unspecified; I73.9 Peripheral vascular disease, unspecified; K21.0 Gastro-esophageal reflux disease with esophagitis; M15.9 Polyosteoarthritis, unspecified; N18.3 Chronic kidney disease, stage 3 (moderate); E78.5 Hyperlipidemia, unspecified; K25.7 Chronic gastric ulcer without hemorrhage or perforation; K21.9 Gastro-esophageal reflux disease without esophagitis; H04.129 Dry eye syndrome of unspecified lacrimal gland; F02.80 Dementia in other diseases classified elsewhere, unspecified severity, without behavioral disturbance, psychotic disturbance, mood disturbance, and anxiety; E55.9 Vitamin D deficiency, unspecified; D63.1 Anemia in chronic kidney disease; G30.9 Alzheimer's disease, unspecified; K44.9 Diaphragmatic hernia without obstruction or gangrene; Z11.59 Encounter for screening for other viral diseases; Z79.899 Other long term (current) drug therapy; Z79.82 Long term (current) use of aspirin; Z87.891 Personal history of nicotine dependence; Z90.710 Acquired absence of both cervix and uterus; Z90.49 Acquired absence of other specified parts of digestive tract; Z98.890 Other specified postprocedural states; Z98.49 Cataract extraction status, unspecified eye; Z87.01 Personal history of pneumonia (recurrent); Z80.9 Family history of malignant neoplasm, unspecified
CPT/HCPCS: 36415; 36430; 43239; 71046; 80048; 80053; 81003; 82272; 83605; 83735; 83880; 84484; 85025; 85610; 85730; 86850; 86900; 86901; 86920; 88305; 88312; 93005; 96360; 96361; 99291